=== PATIENT | male | born 1995 | race Two or more races ===

== ENCOUNTER 2021-11-17 17:28 | Emergency (ER) | payer OTHER ==
[~2021-11-17] VITALS: Ht 165.1 cm; Wt 59.0 kg
--- NOTE | 2021-11-17 17:42 | NUR ---
TO ER BED 10. BIBS C/O BACK PAIN AND SPASMS X1 DAY. 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
[2021-11-17] MEDS ORDERED: CYCLOBENZAPRINE 10 MG TABLET ONE (17:54)
[2021-11-17] MEDS ORDERED: CYCLOBENZAPRINE 10 MG TABLET PO ONE (18:00)
[2021-11-17 18:12] LABS: BASOPHILS % (AUTO) 0.4 % (0.0-2.0); EOSINOPHILS % (AUTO) 1.1 % (0.0-6.0); HEMATOCRIT 42 % (39-51); HEMOGLOBIN 14.4 g/dL (13.5-17.5); LYMPHOCYTES # (AUTO) 1.2 K/uL (0.8-4.8); LYMPHOCYTES % (AUTO) 14.8 % (20.0-44.0); MEAN CORPUSCULAR HGB CONC 35 g/dl (31.0-36.0); MEAN CORPUSCULAR VOLUME 86 fL (80-96); MONOCYTES # (AUTO) 0.8 K/uL (0.1-1.30); MONOCYTES % (AUTO) 9.8 % (2.0-12.0); NEUTROPHILS # (AUTO) 5.9 K/uL (1.8-8.9); NEUTROPHILS % (AUTO) 73.9 % (43.0-81.0); PLATELET COUNT (AUTO) 217 K/uL (150-450); RED BLOOD CELL COUNT(AUTO) 4.82 MIL/uL (4.5-6.0)
[2021-11-17 18:23] LABS: CALCIUM, SERUM 9.3 mg/dL (8.5-10.1); CREATININE 0.9 mg/dL (0.6-1.3); POTASSIUM 3.6 mmol/L (3.5-5.1)
--- NOTE | 2021-11-17 19:10 | NUR ---
URINE COLLECTED AND SENT
[2021-11-17 19:23] LABS: BILIRUBIN,URINE NEGATIVE (NEGATIVE); COLOR,URINE YELLOW (YELLOW); LEUKOCYTE ESTERASE ,URINE MODERATE (NEGATIVE); NITRITE, URINE NEGATIVE (NEGATIVE); PROTEIN,URINE NEGATIVE (NEGATIVE); UGLUCOSE NEGATIVE (NEGATIVE)
[2021-11-17 19:50] LABS: BACTERIA,URINE Rare /HPF (None Seen); MUCUS,URINE Few /LPF (None Seen); SQUAMOUS EPITHELIAL CELL,UR Few /HPF (None Seen); WBC,URINE 20-40 /HPF (0-3)
[2021-11-17] MEDS ORDERED: CEFTRIAXONE 1GM BAG (ER ONLY) 50 ML IV ONE (20:25)
[2021-11-17] MEDS ORDERED: MORPHINE SULFATE INJ 4 MG/ML DISP.SYRIN ONE (20:26)
[2021-11-17] MEDS ORDERED: IV NS 0.9% 1,000 ML IV ONE (20:30)
[2021-11-17] MEDS ORDERED: CEFTRIAXONE 1GM BAG (ER ONLY) 1 GM/50 ML PIGGYBACK IV ONE (20:30)
[2021-11-17] MEDS ORDERED: MORPHINE SULFATE INJ 2 MG/ML DISP.SYRIN IV ONE (20:30)
[2021-11-17] MEDS ORDERED: KETOROLAC TROMETHAMINE INJ 30 MG/ML VIAL IV ONE (21:30)
[2021-11-17] MEDS ORDERED: KETOROLAC TROMETHAMINE 15 MG/ML VIAL ONE ×2 (21:33→21:51)
[2021-11-17] MEDS ORDERED: NAPR-1164 PO (22:04)
[2021-11-17] MEDS ORDERED: CEPH500C2 PO (22:04)
[2021-11-17 22:27] VITALS: BP 115/74
--- NOTE | 2021-11-17 22:27 | NUR ---
Patient discharged to home in stable condition. Written and verbal after care instructions given. Patient verbalizes understanding of instruction. IV removed. Catheter intact and site benign. Pressure and 4x4 applied to site. No bleeding noted.
== END 2021-11-17 22:28 | disposition home or self-care (01) ==
LOC: ER 17:43
DX: N39.0 Urinary tract infection, site not specified (principal); R10.9 Unspecified abdominal pain; Z87.828 Personal history of other (healed) physical injury and trauma; Z79.899 Other long term (current) drug therapy
CPT/HCPCS: 36415; 74021; 76770; 80048; 81001; 85025; 87077; 87086; 96365; 96375; 99285; J0696; J1885; J2270; J7030

== ENCOUNTER 2021-11-25 04:56 | Emergency (ER) | payer OTHER ==
[~2021-11-25] VITALS: Ht 165.1 cm; Wt 61.2 kg
[~2021-11-25 04:56] MED LIST: CEPH500C2 PO; NAPR-1164 PO
[2021-11-25 06:44] VITALS: BP 137/77
[2021-11-25] MEDS ORDERED: CEPH500C2 PO (06:57)
--- NOTE | 2021-11-25 07:01 | NUR ---
Patient discharged to home in stable condition. Written and verbal after care instructions given. Patient verbalizes understanding of instruction.
== END 2021-11-25 07:01 | disposition home or self-care (01) ==
LOC: ER 05:33
DX: N39.0 Urinary tract infection, site not specified (principal); G82.20 Paraplegia, unspecified